=== PATIENT | male | born 1985 | race Caucasian/White ===

== ENCOUNTER → 2018-11-07 | Day surgery (SDC) | payer OTHER ==
[~2018-11-07] MED LIST: ACETAMINOPHEN 500 MG TAB PO PRN; ALBUTEROL 3 ML DEYVIAL IH PRN; BACITRACIN ZINC 0.5 OZ OINTTUBE TP ONE; DEXAMETHASONE 4 MG/ML VIAL ONE; DIAZEPAM 5 MG/ML 1 ML SYR IVP PRN; HYDROmorphONE/DILAUDID 2 MG/ML INJ IVP PRN; LIDO/EPI 1% **Not for Epidural 20 ML MDV ONE; LIDOCAINE 2% 5 ML SDV ONE; LR 1,000 ML IV ONE; LR 500 ML IV PRN; MEPERIDINE 25 MG/0.5 ML AMP IVP PRN; METOCLOPRAMIDE 10 MG/2 ML VIAL IVP PRN; MIDAZOLAM 2 MG/2 ML VIAL IVP ONE; MIDAZOLAM 2 MG/2 ML VIAL ONE; NALOXONE HCL 0.4 MG/ML INJ IVP PRN; ONDANSETRON 4 MG/2 ML VIAL ONE; OXYMETAZOLINE 30 ML NASAL SPRAY EACHNARE PRN; OXYMETAZOLINE 30 ML NASAL SPRAY ONE; PHENYLEPHRINE 0.5% NASAL 15 ML SPRAY ONE; PHENYLEPHRINE HCL 100 MCG/ML SYR IVP PRN; PROMETHAZINE HCL 25 MG/ML INJ IVP PRN; PROPOFOL 200 MG/20 ML VIAL ONE; REMIFENTANIL HCL 1 MG VIAL ONE; ROCURONIUM 50 MG/5 ML VIAL ONE; SUGAMMADEX SODIUM 200 MG/2 ML VIAL IVP ONE; fentaNYL 100 MCG/2 ML INJ IVP PRN; fentaNYL 100 MCG/2 ML INJ ONE; oxyCODONE IR 5 MG TAB ONE; oxyCODONE IR 5 MG TAB PO PRN
--- NOTE | 2018-11-07 14:45 | PDANEPAE ---
ANE History of Present Illness nasal obstruction ANE Past Medical History - Cardiovascular History Hx Hypertension: Yes Hx Arrhythmias: No Hx Chest Pain: No Hx Coronary Artery / Peripheral Vascular Disease: No Hx CHF / Valvular Disease: No Hx Palpitations: No - Pulmonary History Hx COPD: No Hx Asthma/Reactive Airway Disease: No Hx Recent Upper Respiratory Infection: No Hx Oxygen in Use at Home: No Hx Sleep Apnea: No Sleep Apnea Screening Result - Last Documented: Positive Pulmonary History Comment: PATTIE - Neurologic History Hx Cerebrovascular Accident: No Hx Seizures: No Hx Dementia: No - Endocrine History Hx Diabetes: No Hypothyroid: No Hyperthyroid: No Obesity: severe - Renal History Hx Renal Disorders: No - Liver History Hx Hepatic Disorders: No - Neurological & Psychiatric Hx Hx Neurological and Psychiatric Disorders: Yes Neurological / Psychiatric History Comment: depression,anxiety - Cancer History Hx Cancer: No - Congenital Disorder History Hx Congenital Disorders: No - GI History GERD: moderate Hx Gastrointestinal Disorders: Yes Gastrointestinal History Comment: acid reflux - Other Health History Other Health History: chronic sinusitis - Chronic Pain History Chronic Pain: Yes (lower back issues) - Surgical History Prior Surgeries: none inlast 5 yrs ANE Review of Systems Review of systems is: negative Review of Systems: - Exercise capacity Exercise capacity: >=4 METS METS (RN): 4 METS ANE Patient History - Allergies Allergies/Adverse Reactions: No Known Allergies Allergy (Verified 11/06/18 17:00) - Home Medications Home medications: home medication list seen and reviewed Home Medications: Citalopram 11/06/18 [Last Taken 11/07/18] Omeprazole 11/06/18 [Last Taken 11/07/18] ZYRTEC 11/06/18 [Last Taken 11/07/18] - NPO status NPO Status: no food or drink >8 hours NPO Since - Liquids (Date): 11/07/18 NPO Since - Liquids (Time): 12:00 NPO Since - Solids (Date): 11/07/18 NPO Since - Solids (Time): 09:30 - Anes Hx Anes Hx: no prior problems - Smoking Hx Smoking Status: Never smoked - Family Anes Hx Family Hx Anesthesia Complications: none ANE Labs/Vital Signs - Vital Signs Vital Signs: reviewed preoperatively; see RN documention for details Blood Pressure: 148/95 Heart Rate: 68 Respiratory Rate: 16 O2 Sat (%): 94 Height: 185.42 cm Weight: 131.542 kg ANE Physical Exam - Airway Neck exam: FROM Mallampati Score: Class 2 Mouth exam: normal dental/mouth exam - Pulmonary Pulmonary: no respiratory distress - Cardiovascular Cardiovascular: regular rate and rhythym - ASA Status ASA Status: III ANE Anesthesia Plan Anesthesia Plan: general endotracheal anesthesia
--- NOTE | 2018-11-07 14:50 | PDGENHP ---
History & Physical Chief Complaint: Obstructive septal deviaiton and inferior turbinate hypertrophy History of Present Illness: Obstructive septal deviaiton and inferior turbinate hypertrophy Pertinent Past, Social, Family History: Reviewed Relevant Physical Exam: Obstructive septal deviaiton and inferior turbinate hypertrophy. A&O, NAD Cardiorespiratory Assessment: Appropriate for septoplasty and turbinate SMR and outfx
--- NOTE | 2018-11-07 16:13 | POSTOPPROG ---
Post Op Note Date of Operation: 11/07/18 Surgeon: Amandeep Diaz Anesthesia: GET(General Endotracheal) Pre-op Diagnosis: Obstructive septal deviation and inferiorior turbinate hypertrophy Post-op Diagnosis: Obstructive septal deviation and inferiorior turbinate hypertrophy Indication: Obstructive septal deviation and inferiorior turbinate hypertrophy Procedure: Endo septoplasty and inferior turbinate SMR and outfx Findings: Obstructive septal deviation and inferiorior turbinate hypertrophy Inf/Abcess present in the surg proc area at time of surgery?: No Depth: Deep Incisional (Fascial) EBL: Minimal Complications: NONE Specimen(s): NONE
--- NOTE | 2018-11-07 16:42 | POSTANESTH ---
Post Anesthetic Evaluation Cardiovascular Status: Normal, Stable Respiratory Status: Normal, Stable Level of Consciousness/Mental Status: Can Participate in Eval Pain Control: Adequate, Prn Tx Ordered Nausea/Vomiting Control: Adequate, Prn Tx Ordered Complications Possibly Related to Anesthesia: None Noted
[2018-11-07 17:08] VITALS: BP 118/74
== END | disposition home or self-care (01) ==
LOC: FSGY 12:21
PROVIDERS: ATTEND Otolaryngology
PROC: 09TL4ZZ Resection of Nasal Turbinate, Percutaneous Endoscopic Approach (ICD-10-PCS; principal; 2018-11-07 15:00)
PROC: 09QM4ZZ Repair Nasal Septum, Percutaneous Endoscopic Approach (ICD-10-PCS; principal; 2018-11-07 15:00)
DX: J34.2 Deviated nasal septum (principal); J34.3 Hypertrophy of nasal turbinates; G47.33 Obstructive sleep apnea (adult) (pediatric); M54.5 Low back pain; F32.9 Major depressive disorder, single episode, unspecified
CPT/HCPCS: J1100; J2250; J2405; J2704; J3010